=== PATIENT | male | born 1950 | race Caucasian/White ===

== ENCOUNTER 2017-02-27 21:01 | Emergency (ER) | payer MEDICARE, OTHER ==
[~2017-02-27 21:01] MED LIST: ALBUTEROL2.5 MG/3 M IH; ARTHROTEC 50 MG PO; ASPIR-LOW81 M1 PO; BREO ELLIPTA 11 EAC1 IH; CARDURA2 M1 PO; DIFLUCAN100 M1 PO; FEOSOL325 M1 PO; FINASTERIDE5 M2 PO; FLOMAX0.4 M1 PO; INCRUSE ELLI62.5 MCG IH; NEURONTIN100 M1 PO; OMEPRAZOLE40 M2 PO; SPIRIVA18 MC1 IH; TYLENOL WITH C1 EACH PO; TYLENOL325 M2 PO; VENTOLIN HFA18 G2 IH; VENTOLIN HFA18 GM INH; ZESTRIL20 M2 GT
== END 2017-02-27 21:20 | disposition left against medical advice (07) ==
LOC: EDMED 21:01
DX: Z53.21 Procedure and treatment not carried out due to patient leaving prior to being seen by health care provider (principal)